=== PATIENT | male | born 1980 | race Asian ===

== ENCOUNTER 2024-08-07 02:25 | Emergency (ER) | payer OTHER ==
[2024-08-07] MEDS ORDERED: predniSONE 20 MG TAB ONE (03:09)
[2024-08-07] MEDS ORDERED: Dexamethasone 10 MG/ML VIAL ONE (03:09)
== END 2024-08-07 03:19 | disposition home or self-care (01) ==
LOC: ERS 02:25
DX: L50.9 Urticaria, unspecified (principal)
CPT/HCPCS: 96372; 99282; J1100; J7512